=== PATIENT | male | born 1975 ===

== ENCOUNTER 2023-07-05 13:29 | Emergency (ER) | payer OTHER, SELFPAY ==
[2023-07-05 13:34] VITALS: BP 180/102
[2023-07-05 13:51] LABS: % Basophils 0.5 % (0-2); % Eosinophils 3.3 % (0-6); % Immature Granulocytes 0.2 % (0-0.5); % Lymphocytes 20.2 % (20.5-51.1); % Monocytes 6.8 % (1.7-9.3); Absolute Eosinophils 0.2 10^3/uL (0-0.7); Absolute Lymphocytes 1.2 10^3/uL (1.2-3.4); Absolute Monocytes 0.4 10^3/uL (0.1-0.6); Absolute Neutrophils 4.2 10^3/uL (1.4-6.5); Hemoglobin 15.7 g/dL (13.0-18.0); Mean Corp Hgb Conc. 35.7 g/dL (33.0-37.0); Mean Corpuscular Hgb 30.1 pg (27.0-31.0); Mean Corpuscular Volume 84.5 fL (80.0-94.0); Mean Platelet Volume 11.5 fL (7.4-10.4); Nucleated Red Blood Cells % 0 % (-); Platelet Count 164 10^3/uL (130-400); Red Blood Cell Count 5.21 10^6/uL (4.70-6.10); Red Cell Dist. Width 12.1 % (11.5-14.5); White Blood Cell Count 6.1 10^3/uL (4.8-10.8)
[2023-07-05 14:18] LABS: ALT (SGPT) 52 U/L (0-50); AST (SGOT) 43 U/L (17-59); Albumin 4.9 g/dl (3.5-5.0); Alkaline Phosphatase 74 U/L (38-126); Blood Urea Nitrogen 15 mg/dl (9-20); Calcium 9.9 mg/dl (8.4-10.2); Carbon Dioxide 25 mmol/L (22-30); Chloride 101 mmol/L (98-107); Glucose 158 mg/dl (70-99); Potassium 4.1 mmol/L (3.5-5.1); Sodium 138 mmol/L (135-145); Total Bilirubin 0.9 mg/dl (0.2-1.3); Total Protein 8.1 g/dl (6.3-8.2); eGFR > 60.00
--- NOTE | 2023-07-05 15:43 | ED.GENMED ---
History of Present Illness
General
Chief Complaint: Headache
Source: patient
Exam Limitations: none
Time Seen by Provider: 07/05/23 15:06
Nursing documentation reviewed up to this point in time: agreed with
Travel History
Have you had any contact with someone who has COVID-19?: No
Do you have any symptoms of coronavirus? Fever > 100 degrees, chills, cough, shortness of breath, sore throat, loss of taste or smell, muscle aches, or headache?: No
History of Present Illness
History of Present Illness:
Patient to ED with complaint of daily headache x 4 days. Yesterday he developed painful rash to right side of scalp. Denies fever/chills, recent illness. No prior history of same. Brought self to ED for eval.
Past History
Past History
ED Past Medical History: None
Review of Systems
Review of Systems
Allergies reviewed?: Yes
All Other Systems: ROS reviewed and negative except as documented in HPI and ROS
Constitutional: Reports no symptoms
Musculoskeletal: Reports no symptoms
Skin: Reports other (painful vesicular rash to right scalp)
Neurological: Reports headache
Psychiatric: Reports no symptoms
Phy Exam
General Physical Exam
General Presentation: well appearing and no apparent distress
General age: appears stated age
General Skin: warm and dry
General Habitus: normal
General Mental: alert
Neurological Exam
Neurological Exam: alert, oriented x3, no motor deficits and no sensory deficits
Musculoskeletal Exam
Musculoskeletal Exam: full ROM
Skin Exam
Skin Exam: normal color, warm/dry and other (jpainful vesicular rash to right scalp consistent with herpes zoster)
Psychiatric Exam
Psychiatric Exam: normal mood/affect
Course
Orders/Labs/Results
Orders:
Orders
07/05/23 13:45
Complete Blood Count/With Diff Urgent
Comprehensive Metabolic Panel Urgent
07/05/23 15:37
Acyclovir [Zovirax] 800 mg PO NOW STA
Abnormal Lab Results
07/05/23
13:45
MPV 11.5 H fL
(7.4-10.4)
Lymphocytes % 20.2 L %
(20.5-51.1)
Glucose 158 H mg/dl
(70-99)
ALT 52 H U/L
(0-50)
07/05/23 13:45
07/05/23 13:45
Vital Signs
Initial and Last Documented VS:
Initial Vital Signs
Temp Pulse Resp BP Pulse Ox
99.3 F 79 18 180/102 97
07/05/23 13:34 07/05/23 13:34 07/05/23 13:34 07/05/23 13:34 07/05/23 13:34
Last Documented Vital Signs
Temp Pulse Resp BP Pulse Ox
99.3 F 79 18 180/102 97
07/05/23 13:34 07/05/23 13:34 07/05/23 13:34 07/05/23 13:34 07/05/23 13:34
*Critical Care Note
Total Time (30-74mins, 75-104mins- exclusive of procedures): Not Applicable
ED Attending Note
-
Portions of this chart may have been created with voice recognition software.� Occasional wrong word or��sound alike� substitutions may have occurred due to the inherent limitations of voice recognition software.
Discharge Plan
Departure
Patient Disposition: Home (Routine Discharge)
Date of Disposition: 07/05/23
Time of Disposition: 15:39
Patient with high blood pressure during this ER visit?: No
Condition: Good
Covid-19: Not Applicable
Discharge Problem:
Herpes zoster
Instructions: Shingles
Prescriptions:
New
acyclovir 800 mg tablet
800 mg PO DIRECTED 7 Days Qty: 35 0RF
Rx Instructions:
Take one tablet 5 times daily for 7 days.
Activity Restrictions/Additional Instructions:
Follow up with your healthcare provider in 1-2 days
Interventions
Interventions:
*Risk Screen - Suicide Last Done: 07/05/23 13:34
*General Assessment Last Done: 07/05/23 13:34
*Neglect/Abuse Screening Last Done: 07/05/23 13:34
ED- Neurological Assessment Last Done: 07/05/23 15:25
Discharge Date and Time
Print Language: ESTONIAN
[2023-07-05] MEDS: ZOVIRAX 800 MG PO (15:49)
[2023-07-05 15:59] VITALS: BP 169/108
[2023-07-05 16:01] VITALS: BP 169/108
== END 2023-07-05 16:03 | disposition home or self-care (01) ==
LOC: EMR 13:29
PROVIDERS: EMERGENCY PHYSICIAN Emergency Medicine; FAMILY PHYSICIAN Family Medicine
DX: B02.9 Zoster without complications (principal)
CPT/HCPCS: 99283; 80053; 85025